=== PATIENT | male | born 1985 | race African-American/Black ===

== ENCOUNTER 2021-01-17 20:28 | Inpatient (IN) | payer MEDICAID, OTHER ==
[~2021-01-17] VITALS: Ht 188 cm; Wt 126.1 kg
[2021-01-17] MEDS ORDERED: ONDANSETRON HCL 4MG/2ML INJ IV STA (21:40)
[2021-01-17] MEDS ORDERED: NITROGLYCERIN OINT 1GM/INCH UDPKT TD ONE (21:45)
[2021-01-17 22:08] LABS: BASOPHILS % 0.8 % (0.0-2.0); EOSINOPHILS % 4.3 % (0.0-5.0); HEMATOCRIT. 40.8 % (42.0-52.0); HEMOGLOBIN. 13.8 g/dL (14.0-18.0); LYMPHOCYTES % 44.5 % (20.0-50.0); MEAN CORPUSCULAR HEMOGLOBIN 28.6 pg (28.0-32.0); MEAN CORPUSCULAR VOLUME 84.5 fL (80.0-94.0); MEAN PLATELET VOLUME 7.5 fl (7.4-10.4); MONOCYTES % 11.8 % (2.0-8.0); NEUTROPHILS % 38.6 % (40.0-76.0); PLATELET 329 x1000/uL (130-400); RED BLOOD CELL COUNT 4.83 mill/uL (4.7-6.1); RED CELL DISTRIBUTION WIDTH 13.9 % (11.6-14.6)
[2021-01-17 22:14] LABS: CHLORIDE 107 mEq/L (98-107)
[2021-01-17 22:19] LABS: ETHANOL BLOOD < 10 mg/dL
[2021-01-17 22:40] LABS: *AMPHETAMINES SCREEN URINE NEGATIVE (NEGATIVE); *BARBITURATES SCREEN URINE NEGATIVE (NEGATIVE); *BENZODIAZEPINES SCREEN URINE NEGATIVE (NEGATIVE); *COCAINE SCREEN URINE NEGATIVE (NEGATIVE)
[2021-01-17 22:41] LABS: CANNABINOID URINE SCREEN NEGATIVE (NEGATIVE); METHADONE URINE SCREEN NEGATIVE (NEGATIVE); OPIATES URINE SCREEN NEGATIVE (NEGATIVE); PHENCYCLIDINE URINE SCREEN NEGATIVE (NEGATIVE)
[2021-01-18] MEDS ORDERED: ONDANSETRON HCL 4MG/2ML INJ IV PRN (08:15)
[2021-01-18] MEDS ORDERED: ASPIRIN 81MG TABLET PO SCH (09:00)
[2021-01-18] MEDS: ACETAMINOPHEN 325MG TABLET PO PRN ×2 (10:02→22:34)
[2021-01-18] MEDS ORDERED: FUROSEMIDE 40MG/4ML VIAL IVP NR (11:15)
[2021-01-18] MEDS: AMLODIPINE 5MG TABLET PO SCH (16:36)
[2021-01-18 21:11] VITALS: BP 160/90
[2021-01-18 21:30] VITALS: BP 160/90
[2021-01-19] VITALS: BP 160/91
[2021-01-19] MEDS ORDERED: LOSA100T32 MT (01:29)
[2021-01-19] MEDS ORDERED: COR3 MT (01:29)
[2021-01-19] MEDS ORDERED: FURO20TA4 MT (01:29)
[2021-01-19] MEDS ORDERED: ASPI-1497 MT (01:29)
[2021-01-19] MEDS ORDERED: OMEP20CA14 PO (01:29)
[2021-01-19 04:00] VITALS: BP 128/84
[2021-01-19] MEDS ORDERED: LOSARTAN POTASSIUM 100 MG TABLET PO SCH (09:00)
[2021-01-19] MEDS ORDERED: ASPIRIN 81MG EC TABLET PO SCH (09:00)
[2021-01-19] MEDS ORDERED: CARVEDILOL 3.125 MG TABLET PO SCH (09:00)
[2021-01-19] MEDS: AMLODIPINE 5MG TABLET PO SCH (09:09)
[2021-01-19] MEDS: ACETAMINOPHEN 325MG TABLET PO PRN (09:10)
[2021-01-19 09:48] LABS: EOSINOPHILS % 4.5 % (0.0-5.0); HEMATOCRIT. 43.2 % (42.0-52.0); HEMOGLOBIN. 14.5 g/dL (14.0-18.0); LYMPHOCYTES % 44.2 % (20.0-50.0); MEAN CORPUSCULAR HEMOGLOBIN 28.5 pg (28.0-32.0); MEAN CORPUSCULAR VOLUME 84.9 fL (80.0-94.0); MEAN PLATELET VOLUME 7.5 fl (7.4-10.4); NEUTROPHILS % 40.3 % (40.0-76.0); PLATELET 328 x1000/uL (130-400); RED CELL DISTRIBUTION WIDTH 13.5 % (11.6-14.6)
[2021-01-19 09:57] LABS: CHLORIDE 106 mEq/L (98-107)
[2021-01-19 11:35] VITALS: BP 138/84
[2021-01-19 12:00] VITALS: BP 125/69
== END 2021-01-19 12:10 | disposition home or self-care (01) | DRG 203 ==
LOC: ER 20:28 → MICUSO 01-18 01:48 → 8WST 01-18 18:57
PROVIDERS: ADMIT Internal Medicine; ATTEND Internal Medicine
DX: M94.0 Chondrocostal junction syndrome [Tietze] (principal); I11.0 Hypertensive heart disease with heart failure; I50.9 Heart failure, unspecified; D72.819 Decreased white blood cell count, unspecified; E66.9 Obesity, unspecified; E78.00 Pure hypercholesterolemia, unspecified; E78.5 Hyperlipidemia, unspecified; Z82.49 Family history of ischemic heart disease and other diseases of the circulatory system; Z83.3 Family history of diabetes mellitus; Z71.3 Dietary counseling and surveillance; Z68.35 Body mass index [BMI] 35.0-35.9, adult
CPT/HCPCS: 36415; 71045; 80048; 80053; 80305; 80320; 83880; 84443; 84484; 85025; 93005; 93306; 99291; J1940; J2405; G0480

== ENCOUNTER 2021-07-05 15:22 | Inpatient (IN) | payer MEDICAID, OTHER ==
[~2021-07-05] VITALS: Ht 188 cm; Wt 126.6 kg
[~2021-07-05 15:22] MED LIST: ASPI-1497 MT; COR3 MT; FURO20TA4 MT; LOSA100T32 MT; OMEP20CA14 PO
[2021-07-05] MEDS ORDERED: NITROGLYCERIN OINT 1GM/INCH UDPKT TD ONE (16:30)
[2021-07-05] MEDS ORDERED: ASPIRIN 81MG TABLET PO ONE (16:30)
[2021-07-05 16:50] LABS: BASOPHILS % 1.2 % (0.0-2.0); HEMATOCRIT. 37.8 % (42.0-52.0); LYMPHOCYTES % 43.4 % (20.0-50.0); MEAN CORPUSCULAR HEMOGLOBIN 28.9 pg (28.0-32.0); MEAN CORPUSCULAR VOLUME 84.1 fL (80.0-94.0); MEAN PLATELET VOLUME 7.3 fl (7.4-10.4); MONOCYTES % 13.1 % (2.0-8.0); NEUTROPHILS % 38.3 % (40.0-76.0); PLATELET 246 x1000/uL (130-400); RED CELL DISTRIBUTION WIDTH 13.6 % (11.6-14.6)
[2021-07-05 16:57] LABS: CHLORIDE 109 mEq/L (98-107)
[2021-07-05] MEDS ORDERED: ACETAMINOPHEN 325MG TABLET PO ONE (19:00)
[2021-07-06] MEDS ORDERED: ONDANSETRON HCL 4MG/2ML INJ IV PRN
[2021-07-06] MEDS ORDERED: HYDROCODONE/ACETAMINOPHEN 5/325MG TABLET PO PRN
[2021-07-06] MEDS ORDERED: LORAZEPAM 2MG/ML CPJ IV PRN
[2021-07-06] MEDS ORDERED: DIPHENHYDRAMINE 50MG/ML VIAL IV PRN
[2021-07-06] MEDS ORDERED: DOCUSATE SODIUM 100MG CAPSULE PO PRN
[2021-07-06] MEDS ORDERED: CLONIDINE 0.1MG TABLET PO PRN
[2021-07-06] MEDS ORDERED: GUAIFENESIN 200MG/10ML SUGAR FREE UDC PO PRN
[2021-07-06] MEDS ORDERED: MAGNESIUM/ALUMINUM HYDROXIDE/SIMETHICONE 30ML UDC PO PRN
[2021-07-06] MEDS ORDERED: IPRATROPIUM/ALBUTEROL 0.5-3(2.5)MG/3ML NEB HHN PRN
[2021-07-06] MEDS ORDERED: HYDRALAZINE 20MG/ML VIAL IV PRN
[2021-07-06] MEDS ORDERED: ACETAMINOPHEN 325MG TABLET PO PRN
[2021-07-06 05:22] LABS: BASOPHILS % 1.1 % (0.0-2.0); EOSINOPHILS % 2.6 % (0.0-5.0); HEMATOCRIT. 39.5 % (42.0-52.0); HEMOGLOBIN. 13.2 g/dL (14.0-18.0); LYMPHOCYTES % 30.7 % (20.0-50.0); MEAN CORPUSCULAR HEMOGLOBIN 28.3 pg (28.0-32.0); MEAN CORPUSCULAR VOLUME 84.7 fL (80.0-94.0); MEAN PLATELET VOLUME 7.7 fl (7.4-10.4); MONOCYTES % 11.2 % (2.0-8.0); NEUTROPHILS % 54.4 % (40.0-76.0); PLATELET 261 x1000/uL (130-400); RED BLOOD CELL COUNT 4.66 mill/uL (4.7-6.1); RED CELL DISTRIBUTION WIDTH 13.3 % (11.6-14.6)
[2021-07-06 05:29] LABS: CHLORIDE 108 mEq/L (98-107)
[2021-07-06 05:40] LABS: CREATINE KINASE 187 IU/L (39-308)
[2021-07-06 05:42] LABS: CREATINE KINASE MB FRACTION < 1.0 ng/mL (0.5-3.6)
[2021-07-06] MEDS ORDERED: ENOXAPARIN 30MG/0.3ML SYR SUBCUT SCH (06:00)
[2021-07-06] MEDS: SODIUM CHLORIDE 0.9% INJ 3ML FLUSH IVF SCH ×2 (06:17→14:00)
[2021-07-06 08:00] VITALS: BP 130/83
[2021-07-06 11:20] VITALS: BP 150/83
[2021-07-06 12:00] VITALS: BP 129/95
[2021-07-06] MEDS ORDERED: INFLUENZA VACCINE 05/PF 0.5 ML SYRINGE IM ONE (12:15)
[2021-07-06] MEDS ORDERED: CARV3.1242 PO (15:30)
[2021-07-06 16:06] LABS: CREATINE KINASE 149 IU/L (39-308)
[2021-07-06 16:07] LABS: CREATINE KINASE MB FRACTION < 1.0 ng/mL (0.5-3.6)
== END 2021-07-06 18:23 | disposition left against medical advice (07) | DRG 203 ==
LOC: ER 15:22 → MICUSO 23:37 → EDBEDREQ 23:41 → 6WST 07-06 10:57
PROVIDERS: ADMIT Internal Medicine; ATTEND Internal Medicine
DX: M94.0 Chondrocostal junction syndrome [Tietze] (principal); J96.00 Acute respiratory failure, unspecified whether with hypoxia or hypercapnia; I11.0 Hypertensive heart disease with heart failure; I50.9 Heart failure, unspecified; E78.00 Pure hypercholesterolemia, unspecified; Z53.29 Procedure and treatment not carried out because of patient's decision for other reasons; Z20.822 Contact with and (suspected) exposure to COVID-19; K59.00 Constipation, unspecified; Z87.11 Personal history of peptic ulcer disease; E87.8 Other disorders of electrolyte and fluid balance, not elsewhere classified
CPT/HCPCS: 36415; 71045; 80053; 82550; 82553; 83880; 84443; 84484; 85025; 87426; 93970; 99285; J1650